=== PATIENT | male | born 1955 | race Caucasian/White ===

== ENCOUNTER → 2017-07-06 | Outpatient (CLI) | payer OTHER, BC | LOC: BRMIMAGING 13:14 | PROVIDERS: ATTEND Physician Assistant Medical | DX: N28.1 Cyst of kidney, acquired (principal) | CPT/HCPCS: 76770-PO ==

== ENCOUNTER → 2017-09-26 | Outpatient (CLI) | payer OTHER, BC | LOC: FCPNEURO 21:00 | PROVIDERS: ATTEND Internal Medicine Sleep Medicine | DX: G47.33 Obstructive sleep apnea (adult) (pediatric) (principal); G47.61 Periodic limb movement disorder ==